=== PATIENT | female | born 1965 | race Caucasian/White ===

== ENCOUNTER → 2023-06-30 07:26 | Outpatient (REF) | payer BC, SELFPAY | LOC: EMG 07:26 | PROVIDERS: ATTENDING PHYSICIAN Psychiatry & Neurology Neurology; FAMILY PHYSICIAN Internal Medicine | DX: R20.0 Anesthesia of skin (principal) | CPT/HCPCS: 95886; 95911 ==

== ENCOUNTER → 2023-08-28 12:49 | Outpatient (REF) | payer BC, SELFPAY | LOC: RCS 12:49 | PROVIDERS: ATTENDING PHYSICIAN Internal Medicine | DX: R00.2 Palpitations (principal) | CPT/HCPCS: 93225; 93226 ==

== ENCOUNTER → 2023-09-07 06:55 | Outpatient (REF) | payer BC, SELFPAY | LOC: HWRCS 06:55 | PROVIDERS: ATTENDING PHYSICIAN Internal Medicine | DX: R00.2 Palpitations (principal) | CPT/HCPCS: 93306 ==

== ENCOUNTER 2024-02-17 13:14 | Emergency (ER) | payer BC, SELFPAY ==
[2024-02-17] MEDS: TORADOL 15 MG IV (14:11)
[2024-02-17] MEDS: ZOFRAN 4 MG IV (14:11)
[2024-02-17] MEDS: NSS 1000 IV (14:13)
[2024-02-17 14:15] VITALS: BMI 34.9
[2024-02-17 14:25] LABS: % Basophils 0.2 % (0-2); % Immature Granulocytes 0.5 % (0-0.5); % Lymphocytes 11.2 % (20.5-51.1); % Monocytes 4.4 % (1.7-9.3); % Neutrophils 83.7 % (42.2-75.2); Absolute Immature Granulocytes 0.1 10^3/uL (0-0.05); Absolute Lymphocytes 1.4 10^3/uL (1.2-3.4); Absolute Monocytes 0.6 10^3/uL (0.1-0.6); Absolute Neutrophils 10.8 10^3/uL (1.4-6.5); Hemoglobin 13.9 g/dL (12.0-16.0); Mean Corp Hgb Conc. 33.9 g/dL (33.0-37.0); Mean Corpuscular Hgb 29.1 pg (27.0-31.0); Mean Platelet Volume 9.8 fL (7.4-10.4); Nucleated Red Blood Cells % 0 %; Platelet Count 257 10^3/uL (130-400); Red Blood Cell Count 4.77 10^6/uL (4.20-5.40); Red Cell Dist. Width 12.4 % (11.5-14.5); White Blood Cell Count 12.9 10^3/uL (4.8-10.8)
--- NOTE | 2024-02-17 14:30 | ED.GENMED ---
History of Present Illness
General
Chief Complaint: Abdominal Symptoms
Time Seen by Provider: 02/17/24 13:28
History of Present Illness
History of Present Illness:
2-year-old female presents to the emergency department for evaluation of acute onset of upper abdominal pain and vomiting beginning earlier this morning. Has been unable to tolerate any p.o. fluids. Pain is mild to moderate at this time. She does
endorse eating a frozen pizza and drinking wine last night and feels this may have provoked her symptoms. Denies history of frequent alcohol intake, purely social. Denies tobacco use. Does take NSAIDs but infrequently. Prior abdominal surgery
includes
Review of Systems
Review of Systems
Allergies reviewed?: Yes
All Other Systems: ROS reviewed and negative except as documented in HPI and ROS
Phy Exam
Physical Exam
Physical Exam:
GEN: Well appearing, NAD, WDWN
Eyes: PERRLA, EOMs intact, no scleral icterus
HENT: NCAT, oral mucosa moist
Lungs: CTAB, no wheezes, rales, rhonchi, normal chest wall excursion
Cardiac: RRR, no M/R/G, no peripheral edema. Radial pulses 2+ bilat
Abdomen: Soft, no focal tenderness, negative Becerra sign, no rigidity
Neuro: AO x 3
MSK: No gross deformity or ecchymosis. No edema. No digital clubbing
Skin: No rashes, petechiae. Normal color, no pallor or jaundice.
Psych: Calm, cooperative, proper hygiene
Course
Orders/Labs/Results
Orders:
Orders
02/17/24 13:33
Ketorolac [Toradol] 15 mg IV NOW STA
Ondansetron Injectable [Zofran] 4 mg IV NOW STA
02/17/24 13:36
0.9% Sodium Chloride 1000 ml [Nss] 1,000 ml IV BOLUS
02/17/24 14:10
Complete Blood Count/With Diff Urgent
Comprehensive Metabolic Panel Urgent
Lipase Urgent
02/17/24 15:38
Ondansetron Orally Disint [Zofran Odt (Orally Disintegrating)] 4 mg PO NOW STA
Abnormal Lab Results
02/17/24
14:10
WBC 12.9 H 10^3/uL
(4.8-10.8)
Abs Immat Gran (auto) 0.1 H 10^3/uL
(0-0.05)
Absolute Neuts (auto) 10.8 H 10^3/uL
(1.4-6.5)
Neutrophils % 83.7 H %
(42.2-75.2)
Lymphocytes % 11.2 L %
(20.5-51.1)
BUN 21 H mg/dl
(7-17)
Glucose 159 H mg/dl
(70-99)
Calcium 10.3 H mg/dl
(8.4-10.2)
AST 118 H U/L
(14-36)
ALT 69 H U/L
(0-35)
02/17/24 14:10
02/17/24 14:10
Vital Signs
Initial and Last Documented VS:
Initial Vital Signs
Temp Pulse Resp Pulse Ox
98.3 F 75 18 100
02/17/24 13:16 02/17/24 13:16 02/17/24 13:16 02/17/24 13:16
Last Documented Vital Signs
Temp Pulse Resp Pulse Ox
98.3 F 67 18 99
02/17/24 13:16 02/17/24 14:00 02/17/24 13:16 02/17/24 14:00
MDM/Problems Addressed
MDM/Problems Addressed:
Abdominal exam is reassuring. Labs are unremarkable. She has no right upper quadrant tenderness to suggest acute cholecystitis. Likely self-limited viral syndrome versus foodborne gastroenteritis, treated with IV fluids and antiemetics, pain
resolved with IV NSAIDs. Able to tolerate p.o. fluids at time of discharge
*Critical Care Note
Total Time (30-74mins, 75-104mins- exclusive of procedures): Not Applicable
ED Attending Note
-
Portions of this chart may have been created with voice recognition software.� Occasional wrong word or��sound alike� substitutions may have occurred due to the inherent limitations of voice recognition software.
Discharge Plan
Departure
Patient Disposition: Home (Routine Discharge)
Date of Disposition: 02/17/24
Time of Disposition: 15:36
Patient with high blood pressure during this ER visit?: No
Discharge Problem:
Gastroenteritis
Instructions: Nausea and Vomiting, Adult (DC)
Prescriptions:
New
ondansetron 4 mg tablet,disintegrating
4 mg PO TIDPRN PRN (Reason: nausea/vomiting) Qty: 10 0RF
Referrals:
Macho Hammonds MD [Family Provider] -
Interventions
Interventions:
*Risk Screen - Suicide Last Done: 02/17/24 13:16
*General Assessment Last Done: 02/17/24 13:16
*Neglect/Abuse Screening Last Done: 02/17/24 13:16
*ED COVID-19 Vaccine History Last Done: 02/17/24 13:16
GJ-Gnmfsx-Hfpdjzxiog Assessment Last Done: 02/17/24 14:33
Discharge Date and Time
Print Language: MACANESE
[2024-02-17 14:37] LABS: ALT (SGPT) 69 U/L (0-35); AST (SGOT) 118 U/L (14-36); Alkaline Phosphatase 65 U/L (38-126); Blood Urea Nitrogen 21 mg/dl (7-17); Calcium 10.3 mg/dl (8.4-10.2); Carbon Dioxide 28 mmol/L (22-30); Chloride 103 mmol/L (98-107); Estimated Creatinine Clearance 118 ml/min; Glucose 159 mg/dl (70-99); Lipase 72 U/L (23-300); Sodium 143 mmol/L (135-145); Total Bilirubin 0.8 mg/dl (0.2-1.3); Total Protein 7.9 g/dl (6.3-8.2); eGFR > 60.00
[2024-02-17] MEDS: ZOFRAN ODT (ORALLY DISINTEGRATING) 4 MG PO (15:47)
== END 2024-02-17 15:48 | disposition home or self-care (01) ==
LOC: EMR 13:14
PROVIDERS: Physician Assistant; EMERGENCY PHYSICIAN Emergency Medicine; FAMILY PHYSICIAN Internal Medicine
DX: K52.9 Noninfective gastroenteritis and colitis, unspecified (principal)
CPT/HCPCS: 99284; 96374; 96375; 96361 ×2; 80053; 83690; 85025

== ENCOUNTER → 2024-03-15 07:31 | Outpatient (REF) | payer BC, SELFPAY | LOC: RAD 07:31 | PROVIDERS: ATTENDING PHYSICIAN Internal Medicine | DX: K80.20 Calculus of gallbladder without cholecystitis without obstruction (principal) | CPT/HCPCS: 78226; A9537 ==

== ENCOUNTER 2025-03-31 00:42 | Inpatient (IN) | payer BC, OTHER, SELFPAY ==
[2025-03-30 18:57] VITALS: BP 155/65
[2025-03-30 20:34] VITALS: BMI 34.6
[2025-03-30 20:49] LABS: Hematocrit 37.1 % (37.0-47.0); Hemoglobin 12.8 g/dL (12.0-16.0); Mean Corp Hgb Conc. 34.5 g/dL (33.0-37.0); Mean Corpuscular Volume 87.9 fL (81.0-99.0); Nucleated Red Blood Cells % 0 %; Platelet Count 236 10^3/uL (130-400); Red Cell Dist. Width 13.8 % (11.5-14.5)
[2025-03-30 20:56] LABS: Urine Character Clear (Clear)
[2025-03-30 21:12] LABS: Urine Squamous Cell 0-2 /LPF (Few); Urine Urothelial Cell 0-2 /LPF (FEW)
[2025-03-30 21:41] LABS: ALT (SGPT) 311 U/L (0-35); AST (SGOT) 157 U/L (14-36); Albumin 4.3 g/dl (3.5-5.0); Alkaline Phosphatase 505 U/L (38-126); Blood Urea Nitrogen 24 mg/dl (7-17); Calcium 9.5 mg/dl (8.4-10.2); Carbon Dioxide 23 mmol/L (22-30); Chloride 104 mmol/L (98-107); Estimated Creatinine Clearance 100 ml/min; Glucose 104 mg/dl (70-99); Lipase 169 U/L (23-300); Potassium 4.2 mmol/L (3.5-5.1); Sodium 135 mmol/L (135-145); Total Protein 7.4 g/dl (6.3-8.2); eGFR > 60.00
[2025-03-30 22:00] VITALS: BP 130/61
[2025-03-30 22:03] VITALS: BP 130/61
--- NOTE | 2025-03-30 22:05 | ED.GENMED ---
History of Present Illness
General
Chief Complaint: Abdominal Pain
Time Seen by Provider: 03/30/25 21:29
History of Present Illness
History of Present Illness:
Patient is a 59-year-old woman presenting to the emergency department with concerns for abnormal liver function test. Patient states that around she developed some indigestion and belching. Soon is later she noticed dark urine that
she attributed to dehydration. However it was persistent so she went to her primary care doctor. She had blood work done that did show elevated AST and ALT as well as direct and total bilirubin. She has been following closely with her primary
care doctor who noticed that her AST and ALT are improving though her direct bilirubin as well as alk phos is increasing. Patient does admit to alcohol use. She denies any Tylenol use. No new drugs. No history of IV drug use. She did have a
hepatitis panel that was negative. She does state that she has had gallstones in the past with a HIDA scan that was unremarkable. She denies any abdominal pain. No nausea or vomiting. No significant weight loss.
Phy Exam
Physical Exam
Physical Exam:
GENERAL: in no acute distress
HEENT: Slight scleral icterus normocephalic, extraocular movements intact, moist oral mucosa
NECK: normal inspection
RESPIRATORY: no respiratory distress, clear to auscultation bilaterally
CARDIOVASCULAR: regular rate and rhythm
ABDOMEN/: soft, non-distended, non-tender to palpation, no rebound or guarding
EXTREMITIES: non-tender, no edema/swelling
NEUROLOGIC: awake and alert, moves all extremities
SKIN: warm
Course
Orders/Labs/Results
Orders:
Orders
03/30/25 19:01
IV Insert/Care/Rem.- Treatment PRN
03/30/25 20:40
Complete Blood Count/With Diff Urgent
03/30/25 20:47
Urinalysis Urgent
Date Specimen was Collected: 03/30/25
Time Specimen was Collected: 19:02
Urine Microscopic Urgent
Date Specimen was Collected: 03/30/25
Time Specimen was Collected: 19:02
03/30/25 21:18
Comprehensive Metabolic Panel Urgent
Direct Bilirubin Urgent
Lipase Urgent
03/30/25 21:53
US Abdomen Complete/Upper Urgent
Comment:
Reason For Exam: jaundice
Abnormal Lab Results
03/30/25 03/30/25 03/30/25
20:40 20:47 21:18
MPV 10.7 H fL
(7.4-10.4)
Immature Gran % 0.6 H %
(0-0.5)
BUN 24 H mg/dl
(7-17)
Glucose 104 H mg/dl
(70-99)
Total Bilirubin 3.5 H mg/dl
(0.2-1.3)
Direct Bilirubin 2.6 H mg/dl
(0.0-0.4)
AST 157 H U/L
(14-36)
ALT 311 H U/L
(0-35)
Alkaline Phosphatase 505 H U/L
(38-126)
Urine Occult Blood 1+ A
(Negative)
Urine Urobilinogen 2+ A
(Neg - 1+)
Urine RBC 3-6 A /HPF
(0-2)
Urine Bacteria Few A
(Negative)
03/30/25 20:40
03/30/25 21:18
Vital Signs
Initial and Last Documented VS:
Initial Vital Signs
Temp Pulse Resp BP Pulse Ox
98.1 F 71 20 155/65 99
03/30/25 18:57 03/30/25 18:57 03/30/25 18:57 03/30/25 18:57 03/30/25 18:57
Last Documented Vital Signs
Temp Pulse Resp BP Pulse Ox
98.1 F 74 20 130/61 100
03/30/25 18:57 03/30/25 22:03 03/30/25 18:57 03/30/25 22:03 03/30/25 22:03
MDM/Problems Addressed
Differential Diagnosis Includes:
Patient is a 59-year-old woman presenting to the emergency department concerns for transaminitis as well as elevated bilirubin. On arrival vitals are notable for hypertension and exam does show mild scleral icterus. Differential is broad but
consists of malignancy versus bile duct obstruction versus cholecystitis though less likely. History and exam makes drug-induced liver injury less likely. Blood work obtained prior to my evaluation does show elevated AST and ALT as well as
elevated total and direct bilirubin. Her direct bilirubin is uptrending based on blood work on patient's portal. Given the painless jaundice I did discuss with GI who is in agreement with admission. Will proceed with ultrasound. If unremarkable
will obtain CT scan. Discussed with hospitalist who accepted patient to their service.
*Pulse Oximetry
SaO2: 100
Oxygen Mode of Delivery: Room air
Patient hypoxic: no
*Critical Care Note
Total Time (30-74mins, 75-104mins- exclusive of procedures): Not Applicable
ED Attending Note
-
Portions of this chart may have been created with voice recognition software.� Occasional wrong word or��sound alike� substitutions may have occurred due to the inherent limitations of voice recognition software.
Discharge Plan
Departure
Patient Disposition: Admit
Date of Disposition: 03/30/25
Time of Disposition: 22:01
Presentation/result/management discussed w/ accepting MD/DO: Hospitalist
Discharge Problem:
Transaminitis, Painless jaundice
Prescriptions:
No Action
ondansetron 4 mg tablet,disintegrating
4 mg PO TIDPRN PRN (Reason: nausea/vomiting) Qty: 10 0RF
Referrals:
Kassi Juárez CRNP [Family Provider]
Interventions
Interventions:
*Risk Screen - Suicide Last Done: 03/30/25 20:47
*General Assessment Last Done: 03/30/25 18:57
*Neglect/Abuse Screening Last Done: 03/30/25 20:45
*ED COVID-19 Vaccine History Last Done: 03/30/25 20:45
*ED Influenza Vaccine History Last Done: 03/30/25 20:45
[facility] Fall Risk Assessment Tool Last Done: 03/30/25 20:35
BA-Fcgkhr-Urtmzvqsow Assessment Last Done: 03/30/25 20:45
Discharge Date and Time
Print Language: NAMIBIAN
[2025-03-31] VITALS (11 sets, daily range): BP systolic 103–144; BP diastolic 55–72; BMI 33.4
--- NOTE | 2025-03-31 00:36 | HPS.HSE ---
Family Physician
-
Family Physician: DC Berger
Chief Complaint
-
Abnormal Labs
History of Present Illness
Patient is a 59y F with no significant PMH who presents to ED for evaluation of abnormal labs / scleral icterus. Patient states that she developed epigastric discomfort / indigestion around Thanksgiving. She had symptoms for the next few days
which improved with Tums / massage. The following weekend she noted that her urine was dark appearing. This has persisted. Patient was treated for possible UTI by her PCP - but culture was ultimately negative and abx discontinued. She had
outpatient labs done which showed abnormal LFTs. Family noted perhaps some mild yellowing of the eyes over this past week.
Patient returned to PCP for repeat / follow-up labs which were still abnormal / elevated.
She presented to the ED today for further evaluation. She is anxious / tearful in the ED and concerned about these recent results.
Patient denies any current abdominal pain. No N/V though she does note that her appetite has been decreased from normal.
She denies any changes in bowel habits. No fevers / chills.
Patient reports dry mouth for the past 2 months. No other current complaints or concerns.
Medical History
Past Medical History
Past Medical History: Reports Other
Additional Past Medical History:
Gestational Diabetes
Past Surgical History: Reports Other
Additional Past Surgical History:
D&C
Social History
Tobacco: Former Smoker (Quit smoking about 20y ago.)
Alcohol: Occasional
Drug: None
Personal:
Living: With Family
Family History
Family History: Not pertinent
Allergies / Home Medications
Allergies reflects when Allergies were last updated in [facility].
Home Medications with original date entered in [facility]
Allergy/Medication List:
Allergies
Allergy/AdvReac Type Severity Reaction Status Date / Time
No Known Allergies Allergy Verified 03/30/25 18:57
Home Medications
No Meds [No Current Medications] 03/31/25
Review of Systems
-
History Source: Patient
A 12 point ROS was completed and negative except as noted: Yes
Constitutional: Denies Fever, Fatigue or Chills
EENT: Denies Sore Throat
Respiratory: Denies Cough or Trouble Breathing
Cardiac: Denies Chest Pain or Palpitations
Abdomen/GI: Reports Anorexia; Denies Abdominal Pain, Nausea, Vomiting, Diarrhea, Bloody Stools or Black Stools
: Reports Dark Urine; Denies Dysuria, Frequency or Flank Pain
Musculoskeletal: Denies Joint Pain or Edema
Neurological: Denies Dizzy or Headache
Psych: Reports Anxiety
Physical Exam
Vital Signs
Vital Signs
Temp Pulse Resp BP Pulse Ox
98.4 F 85 15 144/56 100
03/31/25 00:02 03/31/25 00:02 03/31/25 00:02 03/31/25 00:02 03/31/25 00:02
Physical Exam
General: Other (59y F tearful / anxious at times.)
HEENT: Other (Dry MM. Neck supple.)
Respiratory: Clear; No Wheezes, Rales or Rhonchi
Cardiac: S1/S2 and Regular Rhythm; No Murmur
GI: Soft, Non Tender, Non Distended and Normal Bowel Sounds
Musculoskeletal: No Clubbing, No Cyanosis and No Edema
Neuro: AO x 3
Laboratory Results
-
03/30/25 20:40
03/30/25 21:18
Laboratory Results
Total Bilirubin 3.5 mg/dl (0.2-1.3) H 03/30/25 21:18
AST 157 U/L (14-36) H 03/30/25 21:18
ALT 311 U/L (0-35) H 03/30/25 21:18
Alkaline Phosphatase 505 U/L (38-126) H 03/30/25 21:18
Lipase 169 U/L (23-300) 03/30/25 21:18
Impression/Plan
-
A/P: Patient is a 59y F with no significant PMH who presents to ED for evaluation of abnormal labs.
Abnormal LFTs
- Admit for further evaluation and treatment.
- US done in the ED - report pending at this time.
- Follow for any new GI symptoms / complaints.
- GI evaluation for additional recommendations.
- MRI / MRCP in the AM for further evaluation.
- Check hepatitis panel. Check LUCY / ASMA.
DVT Prophylaxis: SCDs
Code Status: Full
[2025-03-31] MEDS: NSS 1000 IV ×2 (03:14→17:18)
[2025-03-31 06:32] LABS: Hematocrit 38.8 % (37.0-47.0); Hemoglobin 13.1 g/dL (12.0-16.0); Mean Corp Hgb Conc. 33.8 g/dL (33.0-37.0); Mean Corpuscular Volume 90.0 fL (81.0-99.0); Platelet Count 262 10^3/uL (130-400); Red Cell Dist. Width 13.8 % (11.5-14.5)
[2025-03-31 07:02] LABS: ALT (SGPT) 292 U/L (0-35); AST (SGOT) 134 U/L (14-36); Albumin 4.2 g/dl (3.5-5.0); Alkaline Phosphatase 544 U/L (38-126); Blood Urea Nitrogen 17 mg/dl (7-17); Calcium 9.5 mg/dl (8.4-10.2); Carbon Dioxide 23 mmol/L (22-30); Chloride 108 mmol/L (98-107); Estimated Creatinine Clearance 114 ml/min; Glucose 108 mg/dl (70-99); Magnesium 2.1 mg/dl (1.6-2.3); Potassium 4.2 mmol/L (3.5-5.1); Sodium 138 mmol/L (135-145); Total Protein 7.2 g/dl (6.3-8.2); eGFR > 60.00
--- NOTE | 2025-03-31 07:50 | CON.GI ---
Addendum entered and electronically signed by Curly Corey MD 03/31/25 16:10:
I saw and examined the patient.
The PA's note was reviewed and I agree with the note.
Comment:
59 year old female with h/o gestational diabetes and colon polyps who had epigastric pain around thanksgiving and then developed jaundice with elevated LFT bili 3.5 and alk phos 505. US showed 2.3 cm impacted stone in the neck of GB and moderate IH
ductal dilation which was suspicious for possible Mirizzi syndrome. MRI/MRCP done, and this confirmed Mirizzi syndrome with large cholelithiasis contributing to extrinsic compression on the proximal CHD / main left IH duct. This was discussed with
the pt. Will need surgical mx with cholecystectomy. GI s/o, pls call if questions/our service is needed.
Addendum entered and electronically signed by DC Ramirez 03/31/25 08:43:
03/30/25 US abdomen
1. DISTAL BILIARY OBSTRUCTION with moderate extrahepatic and intrahepatic biliary dilatation.
2. CHOLELITHIASIS, gallbladder sludge, and diffuse gallbladder wall thickening.
3. No sonographic evidence for ascites.
4. Mild dilatation of the right intrarenal collecting system.
Original Note:
Consultation
-
Date/Time Consultation Requested: 03/31/25 0300
Date/Time Consultation Performed: 04/10/25 0750
Requesting Provider: Angel Gonzalez DO
Performing Provider: DC Reveles, Lilly Conley DO
Reason for Consultation: abnormal labs
Medical History
Chief Complaint / HPI
Chief Complaint: epigastric pain, dark urine, jaundice
History of Present Illness:
Pt is a 59yo with hx gestational diabetes, colon polyps, prior and D+ C with onset of epigastric pain around thanksgiving. She took tums and used massage. She then noted dark urine with treatment of possible UTI but culture was negative
and took antibiotics that she could not recall for about 2 days. She then developed jaundice with noted stable CBC on admission but bili 3.5, D ted 2.6, ASt 156, ALT 311, alk phos 505 with +2 bili on UA. US was completed on admission with
preliminary results with impacted stone in neck of gallbladder, GBWT, CBD 7.3 mm with mild intrahepatic biliary dilation and no filling defect in duct with pancreas partially obscured by bowel gas.
In review with patient she admits to about 5 lbs wt loss since thanksgi with jaundice but no recurrent abdominal pain. She did not some wan stool after admission. She otherwise denies odynophagia, dysphagia, GERD, nausea, vomiting,
diarrhea, constipation, or rectal bleeding. + ETOH use on weekends several drinks.
Past Medical History
Past Medical History: Other (gestational DM, colon polyps)
Past Surgical History: , Gynecological (D+ C) and Other (dental implants )
Social History
Tobacco: Non-Smoker
Alcohol: Occasional (Weekends with dinner )
Drug: None
Personal:
Living: With Family
Employment: Employed
Family History
Family History: Other (sister with hx colon )
Allergies / Home Medications
Allergy/AdvReac Type Severity Reaction Status Date / Time
No Known Allergies Allergy Verified 03/30/25 18:57
�Medication �Instructions �Recorded
No Meds [No Current Medications] 03/31/25
Review of Systems
-
History Source: Patient and Family
Constitutional: Reports Weight Loss
EENT: Reports No Symptoms
Respiratory: Reports No Symptoms
Abdomen/GI: Reports Abdominal Pain (epigastric pain several weeks ago) and Other (wan stools)
: Reports Dark Urine
Musculoskeletal: Reports No Symptoms
Skin: Reports Other (change in skin color)
Neurological: Reports No Symptoms
Endocrine: Reports No Symptoms
Hematologic/Lymphatic: Reports No Symptoms
Vital Signs
Temp Pulse Resp BP Pulse Ox
98.7 F 66 20 115/65 97
03/31/25 07:12 03/31/25 07:12 03/31/25 07:12 03/31/25 07:12 03/31/25 07:12
Physical Exam
Exam
General: Well Developed, Well Nourished and No Apparent Distress
HEENT: Other (mild jaundice )
Respiratory: Clear
Cardiac: Regular Rhythm
GI: Soft, Non Tender and Non Distended
Musculoskeletal: No Clubbing and No Cyanosis
Skin: Warm and Dry
Neuro: Awake, Alert and AO x 3
Hematologic/Lymphatic: Lymphadenopathy
Psych: Calm
Results
WBC 6.3 10^3/uL (4.8-10.8) 03/31/25 06:19
Hgb 13.1 g/dL (12.0-16.0) 03/31/25 06:19
Hct 38.8 % (37.0-47.0) 03/31/25 06:19
MCV 90.0 fL (81.0-99.0) 03/31/25 06:19
Plt Count 262 10^3/uL (130-400) 03/31/25 06:19
Absolute Neuts (auto) 2.8 10^3/uL (1.4-6.5) 03/30/25 20:40
Sodium 138 mmol/L (135-145) 03/31/25 06:19
Potassium 4.2 mmol/L (3.5-5.1) 03/31/25 06:19
Chloride 108 mmol/L (98-107) H 03/31/25 06:19
Carbon Dioxide 23 mmol/L (22-30) 03/31/25 06:19
BUN 17 mg/dl (7-17) 03/31/25 06:19
Creatinine 0.6 mg/dL (0.6-1.0) 03/31/25 06:19
Calcium 9.5 mg/dl (8.4-10.2) 03/31/25 06:19
Total Bilirubin 2.0 mg/dl (0.2-1.3) H D 12/15/25 06:19
AST 134 U/L (14-36) H 03/31/25 06:19
ALT 292 U/L (0-35) H 03/31/25 06:19
Alkaline Phosphatase 544 U/L (38-126) H 03/31/25 06:19
Lipase 169 U/L (23-300) 03/30/25 21:18
Diagnostic Image Results:
03/30 preliminary -- US was completed on admission with preliminary results with impacted stone in neck of gallbladder, GBWT, CBD 7.3 mm with mild intrahepatic biliary dilation and no filling defect in duct with pancreas partially obscured by bowel
gas.
Prior GI Procedures:
Colonoscopy: about 2 years ago with polyps
Assessment / Plan
-
Pt is a 59yo with hx gestational diabetes, colon polyps, prior and D+ C with onset of epigastric pain around . She took tums and used massage. She then noted dark urine with treatment of possible UTI but culture was negative
and took antibiotics that she could not recall for about 2 days. She then developed jaundice with noted stable CBC on admission but bili 3.5, D ted 2.6, ASt 156, ALT 311, alk phos 505 with +2 bili on UA. US was completed on admission with
preliminary results with impacted stone in neck of gallbladder, GBWT, CBD 7.3 mm with mild intrahepatic biliary dilation and no filling defect in duct with pancreas partially obscured by bowel gas. In review with patient she admits to about 5 lbs
wt loss since with jaundice but no recurrent abdominal pain. She did not some wan stool after admission. + ETOH use on weekends several drinks.
-onset of jaundice with LFT elevation with epigastric pain several weeks ago
-US with possible impacted stone in GB neck with CBD dilatation
-recent 2 days abx for possible UTI then stopped with neg cx
other med problems:
gestational diabetes, colon polyps, prior and D+ C
PLAN:
etiology of symptoms concern for biliary issue with impacted stone on US vs pancreatic issue bvs other
await final reading of US
for MRI/MRCP
for surgical eval
trend labs
support given as pt tearful awaiting testing
updated family
-
-
Thank you for consultation and allowing me to participate in the patient's care. Please call the education finance processor GI physician during the after hours with any questions or concerns.
--- NOTE | 2025-03-31 08:24 | PTCARENOTE ---
Assumed care. No pain at rest. Epigastric tenderness, bowels sounds hyperactive, wan BM this morning. VSS, NPO for MRI abdomen today
[2025-03-31] MEDS: PROTONIX PO (09:16)
--- NOTE | 2025-03-31 09:50 | CON.GS ---
Addendum entered and electronically signed by Aristeo Le MD 04/01/25 07:18:
Delayed entry note from 03/31/2025
I saw and examined the patient independently on 03/31/2025.
The Flight Operation Coordinator's note was reviewed and I agree with the note, assessment and plan except where noted below.
Comment: This is a 59-year-old female with medical history below and recent postprandial abdominal pain who presents with scleral icterus and though she had not no pain on admission it was preceded by abdominal discomfort. She underwent an MRI
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
Will plan for a laparoscopic cholecystectomy with cholangiogram, added on for 04/01/2025
Okay for clears 04/01/2025, n.p.o. at midnight
IV fluids, IV antibiotics.
Risks/Benefits/Alternatives, expected postoperative course and possible complications (bleeding, infection, injury to surrounding structures, acute/chronic pain) discussed at length. Patient wishes to proceed with surgery. All questions answered.
I spent 70 minutes in total for the care of this patient today including direct patient care and counseling, reviewing labs, imaging, coordination of care, as well as documentation.
Original Note:
Consultation
-
Date/Time Consultation Performed: 03/31/25 0915
Medical History
-
Chief Complaint: epigastric pain
History of Present Illness:
59 yo female with a h/o gestational dm and who presents with epigastric pain intermittently since associated with heartburn. She notes a similar episode last year around as well and underwent HIDA scan at that
time which was negative. She presented through the ED as she noted scleral icterus with abnormal outpatient labs. She is having heartburn symptoms currently and mild discomfort without tenderness one xam. she denies nausea or vomiting. She denies
fevers or chills. She notes that her urine has been darker over the past week.
Past Medical History
Past Medical History: Other (gestational dm)
Past Surgical History: and Gynecological (D&C)
Social History
Tobacco: Non-Smoker
Alcohol: Occasional
Family History
Family History: Reviewed & Not Pertinent
Allergies / Home Medications
Allergy/AdvReac Type Severity Reaction Status Date / Time
No Known Allergies Allergy Verified 03/30/25 18:57
�Medication �Instructions �Recorded �Confirmed �Type
No Meds [No Current Medications] 03/31/25 03/31/25 History
Review of Systems
-
History Source: Patient and Family
All other systems: Negative unless noted
A 10 point review of systems was completed, and was negative except as per HPI.
Physical Exam
Vital Signs
Temp Pulse Resp BP Pulse Ox
98.7 F 66 20 115/65 97
03/31/25 07:12 03/31/25 07:12 03/31/25 07:12 03/31/25 07:13 03/31/25 07:12
03/30/25 03/31/25 04/01/25
06:59 06:59 06:59
Actual Weight 91.1 kg
Body Mass Index (BMI) 33.4
Lab Results
03/31/25 06:19
03/31/25 06:19
WBC 6.3 10^3/uL (4.8-10.8) 03/31/25 06:19
Hgb 13.1 g/dL (12.0-16.0) 03/31/25 06:19
Hct 38.8 % (37.0-47.0) 03/31/25 06:19
Plt Count 262 10^3/uL (130-400) 03/31/25 06:19
Abs Immat Gran (auto) 0.0 10^3/uL (0-0.05) 03/30/25 20:40
Neutrophils % 53.2 % (42.2-75.2) 03/30/25 20:40
Physical Exam
General: Other (tearful, expressing worry over her condition)
HEENT: Scleral Icterus
GI: Soft, Non Tender and Non Distended
Skin: Warm and Dry
Neuro: Awake, Alert and AO x 3
Psych: Calm
Assessment / Plan
-
59 yo h/o gestational dm and who presents with epigastric pain intermittently since gi associated with heartburn who presents for jaundice. LFT's elevated with bilirubin of 3.5 on admission, trended down to 2.0. Direct mildly
elevated to 1.0, transaminitis and alk phos elevated as well. Lipase WNL. No leukocytosis. Afebilre. VSS. Abdominal US with evidence of biliary duct obstruction with cholelithiasis, sludge and gallbladder wall thickening. Suspect choledocholithiasis
as etiology of her abnormal labs/symptoms although will need to rule out other obstructing causes.
Plan:
MRI pending to better differentiate cause of obstruction
GI following
Further surgical recs pending MRI findings
--- NOTE | 2025-03-31 11:10 | W.PN.HOSP.TC ---
Today's Communication/Plan
-
Await MRI
Add CPAP
Assessment / Plan
Assessment / Plan
59-year-old female with jaundice she also has 5 pound weight loss since .
Ultrasound of the abdomen 03/30/2025-distal biliary obstruction with moderate extrahepatic and intrahepatic biliary dilatation. Cholelithiasis. Gallbladder sludge and diffuse gallbladder wall thickening. No ascites. Mild dilatation of the right
intrarenal collecting system.
CVS: S1-S2 normal
Chest: CTA B/L
Abdomen: Soft, No RUQ tenderness, Bowel sounds present
Extremities: No edema
# Jaundice with epigastric pain
Ultrasound as above
Possible stone related
If patient develops any fever add antibiotics
Await MRI/MRCP
Surgery and GI evaluation appreciated
LFT stable-but elevated
Hepatitis panel pending
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
# Sleep apnea-CPAP - she just started it as OP
# Prediabetes
# Obesity with a BMI of 33
# DVT prophylaxis-Lovenox
# Full code
D/W RN
D/W Family at bed side
Part of this note was created using voice recognition system. Occasional wrong word or��sound alike� substitutions may have inadvertently occurred due to the inherent limitations of voice recognition software. If noted kindly bring it to my
attention for correction.
Anticipated Discharge: 24 - 48 hours
Subjective/Interval History
-
Date of Service: March 31, 2025
Objective Data
-
Labs:
Laboratory Results
03/31/25
06:19
WBC 6.3
Hgb 13.1
Hct 38.8
Plt Count 262
Sodium 138
Potassium 4.2
Chloride 108 H
Carbon Dioxide 23
BUN 17
Creatinine 0.6
Glucose 108 H
Calcium 9.5
Total Bilirubin 2.0 H D
AST 134 H
ALT 292 H
Alkaline Phosphatase 544 H
Vital Signs:
Vital Signs
Temp Pulse Resp BP Pulse Ox
98.7 F 66 20 115/65 97
03/31/25 07:12 03/31/25 07:12 03/31/25 07:12 03/31/25 07:13 03/31/25 07:12
--- NOTE | 2025-03-31 11:10 | CM ---
Chart reviewed. Patient is independent of ADLS, lives with her in a split level, 0 ERIKA, 0 DME. Plan is for the patient to return home. CM to follow
--- NOTE | 2025-03-31 11:14 | PTCARENOTE ---
Patient sent to MRI on a stretcher
--- NOTE | 2025-03-31 15:06 | PTCARENOTE ---
Diet advanced to clear. Urine orange. 3 episodes of loose stools this afternoon. Formed stool earlier today. Family at bedside, call maria in reach
[2025-03-31] MEDS: LOVENOX 40 MG SC (18:34)
[2025-03-31 19:15] LABS: Hepatitis B Surface Antigen Negative (Negative)
[2025-03-31 19:32] LABS: Hepatitis C Antibody Negative (Negative)
[2025-04-01] VITALS (26 sets, daily range): BP systolic 0–131; BP diastolic 52–83; BMI 33.1
[2025-04-01] MEDS: NSS 1000 IV ×2 (04:56→20:27)
[2025-04-01 05:00] LABS: Hematocrit 39.7 % (37.0-47.0); Hemoglobin 13.1 g/dL (12.0-16.0); Mean Corp Hgb Conc. 33.0 g/dL (33.0-37.0); Mean Corpuscular Volume 91.3 fL (81.0-99.0); Platelet Count 254 10^3/uL (130-400); Red Cell Dist. Width 13.8 % (11.5-14.5)
[2025-04-01 05:28] LABS: ALT (SGPT) 335 U/L (0-35); AST (SGOT) 273 U/L (14-36); Albumin 4.0 g/dl (3.5-5.0); Alkaline Phosphatase 593 U/L (38-126); Blood Urea Nitrogen 12 mg/dl (7-17); Calcium 9.1 mg/dl (8.4-10.2); Carbon Dioxide 24 mmol/L (22-30); Chloride 106 mmol/L (98-107); Estimated Creatinine Clearance 98 ml/min; Glucose 106 mg/dl (70-99); Potassium 4.1 mmol/L (3.5-5.1); Sodium 138 mmol/L (135-145); Total Protein 7.1 g/dl (6.3-8.2); eGFR > 60.00
--- NOTE | 2025-04-01 06:34 | PTCARENOTE ---
Pt AAOx3. at bedside. No C/o pain. Pt was wiped with CHG wipes x2 and linens changed.
--- NOTE | 2025-04-01 07:33 | W.PN.GS2 ---
Today's Communication / Plan
-
-- Laparoscopic cholecystectomy with IOC
-- NPO, IVF
-- Abx: Zosyn
Assessment / Plan
-
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
US Abdomen (03/30): cholelithiasis, gallbladder sludge, diffuse gallbladder wall thickening, sonographic Becerra sign negative, biliary dilation with CBD measuring 7.3 mm
MRI Abdomen (03/31): Cholelithiasis without evidence of acute cholecystitis, several large stones measuring up to 3 cm causing extrinsic compression on the CBD, no choledocholithiasis
AVSS
Labs notable for uptrending bilirubin and LFTs
The natural history and pathophysiology of biliary and stone disease was reviewed. Workup thus far including ultrasound and MRI were reviewed. Labs were reviewed. Recommended plan for cholecystectomy.
Plan for a laparoscopic cholecystectomy with possible cholangiogram. The procedure itself, as well as the risks, benefits, and alternatives was discussed. Specifically, we discussed the risks of bleeding, infection, injury to surrounding
structures (bowel, bile ducts), CBD injury, need for open procedure. Typical postprocedural recovery was discussed. All questions answered. Consent signed.
-- Laparoscopic cholecystectomy with IOC
-- NPO, IVF
-- Abx: Zosyn
Subjective Data
-
Date of Service: April 01, 2025
Feels improved, but continues to have some mild discomfort and sour feeling in her epigastrium. No nausea or vomiting. No fevers or chills. Reports orange urine and location analyst stools as well as some jaundice.
Objective Data
-
Intake and Output
03/31/25 04/01/25 04/02/25
06:59 06:59 06:59
Intake Total 1680 / 1680
Output Total 10013 / 24467
Balance -62477 / -97752
Intake:
Oral fluids 720 / 720
IV piggybacks 960 / 960
Output:
Urine, Voided 89661 / 88568
Other:
Number of approximated MODERATE 1
amounts of urine
Vital Signs
Temp Pulse Resp BP Pulse Ox
97.8 F 65 16 131/53 100
04/01/25 07:23 03/31/25 23:05 04/01/25 07:23 04/01/25 07:25 04/01/25 07:23
Lab Results
04/01/25 04:47
04/01/25 04:47
Calcium 9.1 mg/dl (8.4-10.2) 04/01/25 04:47
Phosphorus 4.7 mg/dl (2.5-4.5) H 03/31/25 06:19
Magnesium 2.1 mg/dl (1.6-2.3) 03/31/25 06:19
Total Bilirubin 4.1 mg/dl (0.2-1.3) H D 04/01/25 04:47
Direct Bilirubin 1.0 mg/dl (0.0-0.4) H 03/31/25 06:19
AST 273 U/L (14-36) H 04/01/25 04:47
ALT 335 U/L (0-35) H 04/01/25 04:47
Alkaline Phosphatase 593 U/L (38-126) H 04/01/25 04:47
Total Protein 7.1 g/dl (6.3-8.2) 04/01/25 04:47
Albumin 4.0 g/dl (3.5-5.0) 04/01/25 04:47
Physical Exam
-
Gen: NAD
Abd: soft, mild epigastric tenderness, ND, obese, non-peritoneal, prior incision well healed
Patient has a sofia catheter: No
Patient has a central line: No
--- NOTE | 2025-04-01 07:39 | W.SUR.PREOP ---
Pre-Operative Surgical Note
-
I have examined this patient prior to the performance of the scheduled procedure.
The patient's condition is unchanged from the time of the current History and
Physical and the patient is able to undergo the scheduled procedure.
--- NOTE | 2025-04-01 07:45 | PTCARENOTE ---
Sent the patient to the OR in her bed. The patient is aaox3, vital signs are stable. She has tenderness in her epigastric area with some faint nausea. Pre-op checklist done. Raymond sent to OR with the patient. Consent on her chart.
--- NOTE | 2025-04-01 11:31 | W.IMMPOSTOP ---
Addendum entered and electronically signed by Tai Lea MD 04/02/25 13:48:
Case discussed with GI given the concern for a possible bile duct injury and leak. Recommend and plan for a ERCP (see separate procedure note for details).
Patient and family updated.
Original Note:
Surgical Immed Post Op Note
-
Primary Surgeon: Leonora
Assisting Surgeon: ESTHER Arguello
Pre-op Diagnosis: Acute on chronic cholecystitis
Post-op Diagnosis: Acute on chronic cholecystitis
Procedure Performed: Subtotal laparoscopic cholecystectomy
Anesthesia Type: General
Specimen / Cultures:
1. Gallbladder
Estimated Blood Loss: 11 cc
Complications: None
Operative Findings:
1. Severe chronic inflammation, dense adhesions to duodenum, 3 large stones and 2 smaller, hydropic bile
2. Subtotal with removal of anterior and posterior wall, friable wall at region of impacted stones, possible rent in CBD versus cystic duct orifice, no further area of bile leak appreciated (intraluminal GB view down on infundibulum)
3. Artery with clips, leak/duct with 4-0 PDS [id number] (no leak at closure)
4. 19 Fr Ja drain into operative field
[2025-04-01] MEDS: PROTONIX PO (11:32)
[2025-04-01] MEDS: PROTONIX 40 MG PO (12:26)
--- NOTE | 2025-04-01 12:39 | PTCARENOTE ---
Received the patient from PACU in her bed. The patient is aaox3 but groggy. She has 4 small linear horizontal wounds on her right/mid abdomen areas. Surgical glue is noted on all 4 wounds. A CASSIE drain is noted on her right lower lateral abdomen. No
drainage is noted in the bulb. She has no complains of pain or discomfort. NS is running at 80ml/hr. Her is at the bedside and her call maria is within reach.
--- NOTE | 2025-04-01 12:48 | CM ---
Chart reviewed. Patient is in the OR today. Patient is independent of ADLS, lives with her in a split level, 0 ERIAK, 0 DME. Plan is for the patient to return home. CM to follow
[2025-04-01] MEDS: ZOSYN 50 IV ×2 (14:03→20:29)
[2025-04-01] MEDS: TYLENOL 650 MG PO ×2 (14:08→20:57)
--- NOTE | 2025-04-01 14:14 | PTCARENOTE ---
The patient complained of a 2/10 on scale pain in her right mid abdomen. Tylenol given as ordered.
[2025-04-01] MEDS: ZOFRAN 4 MG IV (14:54)
--- NOTE | 2025-04-01 15:18 | W.PN.HOSP.TC ---
Today's Communication/Plan
-
NPO
IVF
Await GI eval
Assessment / Plan
Assessment / Plan
59-year-old female with jaundice she also has 5 pound weight loss since .
Ultrasound of the abdomen 03/30/2025-distal biliary obstruction with moderate extrahepatic and intrahepatic biliary dilatation. Cholelithiasis. Gallbladder sludge and diffuse gallbladder wall thickening. No ascites. Mild dilatation of the right
intrarenal collecting system.
CVS: S1-S2 normal
Chest: CTA B/L
Abdomen: Soft, No RUQ tenderness, Bowel sounds present
Extremities: No edema
03/31/2025-MRI/MRCP-cholelithiasis without evidence of acute cholecystitis. Large Gallstones 1 of which is in the gallbladder neck likely causing extrinsic compression on the adjacent common hepatic duct resulting in intrahepatic biliary ductal
dilatation.
# Jaundice with epigastric pain
Ultrasound as above
Symptomatic cholelithiasis-acute on chronic cholecystitis
Status post subtotal laparoscopic cholecystectomy by Dr. Lea on 04/01/2020
Patient is to be evaluated by Dr. Corey per discussion with surgery for a possible ERCP today
Antibiotics ordered per surgeon
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
# Sleep apnea-CPAP - she just started it as OP
# Prediabetes
# Obesity with a BMI of 33
# DVT prophylaxis-Lovenox
# Full code
D/W RN
D/W daughters at bed side
Discussed with surgeon
Part of this note was created using voice recognition system. Occasional wrong word or��sound alike� substitutions may have inadvertently occurred due to the inherent limitations of voice recognition software. If noted kindly bring it to my
attention for correction.
Anticipated Discharge: 24 - 48 hours
Subjective/Interval History
-
Date of Service: April 01, 2025
Objective Data
-
Labs:
Laboratory Results
04/01/25
04:47
WBC 5.4
Hgb 13.1
Hct 39.7
Plt Count 254
Sodium 138
Potassium 4.1
Chloride 106
Carbon Dioxide 24
BUN 12
Creatinine 0.7
Glucose 106 H
Calcium 9.1
Total Bilirubin 4.1 H D
AST 273 H
ALT 335 H
Alkaline Phosphatase 593 H
Vital Signs:
Vital Signs
Temp Pulse Resp BP Pulse Ox
98.0 F 76 16 123/66 97
04/01/25 12:19 04/01/25 12:50 04/01/25 12:19 04/01/25 14:00 04/01/25 12:19
I&O
03/31/25 04/01/25 04/02/25
06:59 06:59 06:59
Intake Total 1680 / 1680 150 / 150
Output Total 65617 / 28113 800 / 800
Balance -15408 / -35653 -650 / -650
--- NOTE | 2025-04-01 16:00 | PTCARENOTE ---
Patient c/o nausea. Zofran given as ordered.
[2025-04-01] MEDS: LOVENOX 40 MG SC (20:28)
--- NOTE | 2025-04-01 23:48 | PTCARENOTE ---
Received pt at change of shift, pt in PACU. Report received from ELEVATOR INSPECTOR. pt back in room at approx 2009. PRN Tylenol administered per pt request for headache--see JUN. Assessment completed as documented. x4 incision sites intact and GEOSPATIAL ENGINEER. CASSIE drain
in place draining sanguineous fluid. Encouraged pt to call RN w/ any questions/concerns. Call maria within reach.
[2025-04-02 02:58] VITALS: BP 127/64
[2025-04-02] MEDS: ZOSYN 50 IV ×2 (02:59→08:23)
[2025-04-02 03:19] VITALS: BMI 33.9
[2025-04-02 03:44] LABS: Hematocrit 34.7 % (37.0-47.0); Hemoglobin 11.4 g/dL (12.0-16.0); Mean Corp Hgb Conc. 32.9 g/dL (33.0-37.0); Mean Corpuscular Volume 91.6 fL (81.0-99.0); Platelet Count 238 10^3/uL (130-400); Red Cell Dist. Width 13.8 % (11.5-14.5)
[2025-04-02 04:05] LABS: ALT (SGPT) 271 U/L (0-35); AST (SGOT) 135 U/L (14-36); Albumin 3.6 g/dl (3.5-5.0); Alkaline Phosphatase 429 U/L (38-126); Blood Urea Nitrogen 14 mg/dl (7-17); Calcium 8.9 mg/dl (8.4-10.2); Carbon Dioxide 24 mmol/L (22-30); Chloride 106 mmol/L (98-107); Estimated Creatinine Clearance 98 ml/min; Glucose 180 mg/dl (70-99); Potassium 4.4 mmol/L (3.5-5.1); Sodium 137 mmol/L (135-145); Total Protein 6.5 g/dl (6.3-8.2); eGFR > 60.00
[2025-04-02] MEDS: NSS IV (07:00)
[2025-04-02 07:46] VITALS: BP 112/56
[2025-04-02] MEDS: PROTONIX 40 MG PO (08:23)
--- NOTE | 2025-04-02 09:47 | W.PN.HOSP.TC ---
Today's Communication/Plan
-
Continue with liquid diet
Antibiotics
Assessment / Plan
Assessment / Plan
59-year-old female with jaundice she also has 5 pound weight loss since .
Ultrasound of the abdomen 03/30/2025-distal biliary obstruction with moderate extrahepatic and intrahepatic biliary dilatation. Cholelithiasis. Gallbladder sludge and diffuse gallbladder wall thickening. No ascites. Mild dilatation of the right
intrarenal collecting system.
CVS: S1-S2 normal
Chest: CTA B/L
Abdomen: Soft, laparotomy scar stable CASSIE drain with bloodstained minimal drainage
Extremities: No edema
03/31/2025-MRI/MRCP-cholelithiasis without evidence of acute cholecystitis. Large Gallstones 1 of which is in the gallbladder neck likely causing extrinsic compression on the adjacent common hepatic duct resulting in intrahepatic biliary ductal
dilatation.
# Jaundice with epigastric pain
Ultrasound as above
Symptomatic cholelithiasis-acute on chronic cholecystitis
Status post subtotal laparoscopic cholecystectomy by Dr. Lea on 04/01/2020
Concern for bile leak due to large stone being removed. Patient is status post ERCP and stent placement by Dr. Corey on 04/01/2025
No bile leak noted in the drain
Antibiotics ordered per surgeon
Patient started on liquid diet-so far tolerating
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
# Sleep apnea-CPAP - she just started it as OP
# Prediabetes
# Obesity with a BMI of 33
# DVT prophylaxis-Lovenox
# Full code
D/W RN
D/W family at bed side
Part of this note was created using voice recognition system. Occasional wrong word or��sound alike� substitutions may have inadvertently occurred due to the inherent limitations of voice recognition software. If noted kindly bring it to my
attention for correction.
Anticipated Discharge: Within 24 hours
Subjective/Interval History
-
Date of Service: April 02, 2025
Objective Data
-
Labs:
Laboratory Results
04/02/25
03:14
WBC 7.5
Hgb 11.4 L
Hct 34.7 L
Plt Count 238
Sodium 137
Potassium 4.4
Chloride 106
Carbon Dioxide 24
BUN 14
Creatinine 0.7
Glucose 180 H
Calcium 8.9
Total Bilirubin 1.4 H D
AST 135 H
ALT 271 H
Alkaline Phosphatase 429 H
Vital Signs:
Vital Signs
Temp Pulse Resp BP Pulse Ox
98.5 F 64 16 112/56 95
04/02/25 07:46 04/02/25 07:46 04/02/25 07:46 04/02/25 07:46 04/02/25 07:46
I&O
04/01/25 04/02/25 04/03/25
06:59 06:59 06:59
Intake Total 1680 / 1680 2069 / 2069
Output Total 75055 / 72421 1890 / 1890 470 / 470
Balance -55578 / -05134 180 / 180 -470 / -470
--- NOTE | 2025-04-02 10:13 | W.PN.GS2 ---
Today's Communication / Plan
-
-- Clears possible LFD this afternoon versus tomorrow
-- Pain control: Tylenol, Oxycodone
-- Abx: none further indicated or needed
-- Maintain CASSIE
-- Tend labs
Assessment / Plan
-
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
US Abdomen (03/30): cholelithiasis, gallbladder sludge, diffuse gallbladder wall thickening, sonographic Becerra sign negative, biliary dilation with CBD measuring 7.3 mm
MRI Abdomen (03/31): Cholelithiasis without evidence of acute cholecystitis, several large stones measuring up to 3 cm causing extrinsic compression on the CBD, no choledocholithiasis
POD#1 s/p laparoscopic cholecystectomy and repair of CBD injury
PPD#1 s/p ERCP with sphincterotomy and stent placement
AVSS
Labs notable for normal WBC, drift in Hb (dilutional and acute blood loss anemia), normal lytes, normal renal function, down trending bilirubin and LFTs
Recovering well overall. Tenuous situation with chronic Mirizzi syndrome and adhesion to the proximal CBD at the level of the hilum, removal of which resulted in a tear in the CBD which was primary suture repair. ERCP demonstrated no evidence of a
leak; sphincterotomy and stent placed prophylactically. Will need to maintain her CASSIE drain for 10 to 14 days postoperatively. Continue to trend labs. Tentative plan for DC in 24 to 48 hours pending clinical course.
-- Clears possible LFD this afternoon versus tomorrow
-- Pain control: Tylenol, Oxycodone
-- Abx: none further indicated or needed
-- Maintain CASSIE
-- Tend labs
Subjective Data
-
Date of Service: April 02, 2025
No major complaints. Some abdominal soreness, but well-controlled. No nausea or vomiting. No fevers. No flatus or BM.
Objective Data
-
Intake and Output
04/01/25 04/02/25 04/03/25
06:59 06:59 06:59
Intake Total 1680 / 1680 2070 / 2070
Output Total 43479 / 89371 1890 / 1890 470 / 470
Balance -15679 / -51057 180 / 180 -470 / -470
Intake:
Oral fluids 720 / 720 480 / 480
IV fluids (Total) 1540 / 1540
NS 1440 / 1440
normosol 100 / 100
IV piggybacks 960 / 960 50 / 50
Output:
Drain Output (Total) 40 20
Right Lower Abdomen Giuliano- 40 40
Hernandez
Urine, Voided 60973 / 41310 1850 / 1850 450 / 450
Vital Signs
Temp Pulse Resp BP Pulse Ox
98.5 F 64 16 112/56 95
04/02/25 07:46 04/02/25 07:46 04/02/25 07:46 04/02/25 07:46 04/02/25 07:46
Lab Results
04/02/25 03:14
04/02/25 03:14
Calcium 8.9 mg/dl (8.4-10.2) 04/02/25 03:14
Phosphorus 4.7 mg/dl (2.5-4.5) H 03/31/25 06:19
Magnesium 2.1 mg/dl (1.6-2.3) 03/31/25 06:19
Total Bilirubin 1.4 mg/dl (0.2-1.3) H D 04/02/25 03:14
Direct Bilirubin 1.0 mg/dl (0.0-0.4) H 03/31/25 06:19
AST 135 U/L (14-36) H 04/02/25 03:14
ALT 271 U/L (0-35) H 04/02/25 03:14
Alkaline Phosphatase 429 U/L (38-126) H 04/02/25 03:14
Total Protein 6.5 g/dl (6.3-8.2) 04/02/25 03:14
Albumin 3.6 g/dl (3.5-5.0) 04/02/25 03:14
Physical Exam
-
Gen: NAD
Abd: soft, mild tenderness, ND, non-peritoneal, incisions c/d/i - no erythema, ecchymosis or drainage, CASSIE serosang, non-bilious
Patient has a sofia catheter: No
Patient has a central line: No
--- NOTE | 2025-04-02 13:52 | CM ---
Chart reviewed. Patient is independent of ADLS, lives with her in a split level, 0 ERIKA, 0 DME. Patient with a CASSIE and has concerns caring for the drain. Referral placed to [facility]. Plan is for the patient to return home. CM to follow
[2025-04-02 15:07] VITALS: BP 116/53
[2025-04-02] MEDS: TYLENOL 650 MG PO (16:34)
[2025-04-02] MEDS: LOVENOX 40 MG SC (17:38)
[2025-04-02 18:40] VITALS: BP 133/66
[2025-04-02] MEDS: MYLICON 80 MG PO (20:26)
[2025-04-02 23:00] VITALS: BP 117/57
[2025-04-02 23:01] VITALS: BP 117/57
--- NOTE | 2025-04-03 02:59 | PTCARENOTE ---
Pt c/o 'gas pain' in her b/l shoulders. Deangelo GEOTECHNICAL LABORATORY TECHNICIAN made aware, orders obtained for 80mg Mylicon--administered at 20:26. Pt reports good relief. Ambulating self in room. BP stable. CASSIE Draining serosanguineous fluid. Call maria in reach, spouse at
bedside.
[2025-04-03 05:47] VITALS: BMI 33.6
[2025-04-03 06:27] LABS: Blood Urea Nitrogen 12 mg/dl (7-17); Calcium 9.0 mg/dl (8.4-10.2); Carbon Dioxide 30 mmol/L (22-30); Chloride 107 mmol/L (98-107); Estimated Creatinine Clearance 98 ml/min; Glucose 117 mg/dl (70-99); Potassium 4.2 mmol/L (3.5-5.1); Sodium 141 mmol/L (135-145); eGFR > 60.00
--- NOTE | 2025-04-03 06:48 | PTCARENOTE ---
CASSIE drain dressing w/ some sanguinous drainage. Dressing changed. Pt ambulating the halls w/ her spouse. Had a BM this morning.
[2025-04-03 07:08] VITALS: BP 156/74
[2025-04-03] MEDS: PROTONIX 40 MG PO (07:50)
--- NOTE | 2025-04-03 08:48 | W.PN.GS2 ---
Today's Communication / Plan
-
-- Maintain CASSIE
-- Tend labs
-- Dispo pending, today versus tomow depending on labs
Assessment / Plan
-
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
US Abdomen (03/30): cholelithiasis, gallbladder sludge, diffuse gallbladder wall thickening, sonographic Becerra sign negative, biliary dilation with CBD measuring 7.3 mm
MRI Abdomen (03/31): Cholelithiasis without evidence of acute cholecystitis, several large stones measuring up to 3 cm causing extrinsic compression on the CBD, no choledocholithiasis
POD#2 s/p laparoscopic cholecystectomy and repair of CBD injury
PPD#2 s/p ERCP with sphincterotomy and stent placement
AVSS
Labs pending
Recovering well overall. Tenuous situation with chronic Mirizzi syndrome and adhesion to the proximal CBD at the level of the hilum, removal of which resulted in a tear in the CBD which was primary suture repair. ERCP demonstrated no evidence of a
leak; sphincterotomy and stent placed prophylactically. Will need to maintain her CASSIE drain for 10 to 14 days postoperatively. Repeat labs pending.
-- LFD
-- Pain control: Tylenol, Oxycodone
-- Abx: none further indicated or needed
-- Maintain CASSIE
-- Tend labs
-- Dispo pending, today versus tomow depending on labs
Subjective Data
-
Date of Service: April 03, 2025
With soreness at drain site particularly with manipulation or positioning. No nausea or vomiting. No increased abdominal bloating or worsening pain. Passing flatus and a BM. Afebrile.
Objective Data
-
Intake and Output
04/02/25 04/03/25 04/04/25
06:59 06:59 06:59
Intake Total 2069 240 / 240
Output Total 1889 / 1889
Balance 180 / 180 -1675 / -1675
Intake:
Oral fluids 480 / 480 240 / 240
IV fluids (Total) 1540 / 1540
NS 1440 / 1440
normosol 100 / 100
IV piggybacks 50 / 50
Output:
Drain Output (Total) 40 40 115 / 115
Right Lower Abdomen Giuliano- 115 / 115
Hernandez
Urine, Voided 1850 / 1850 1800 / 1800
Vital Signs
Temp Pulse Resp BP Pulse Ox
98.5 F 73 20 156/74 97
04/03/25 07:08 04/03/25 07:08 04/03/25 07:08 04/03/25 07:08 04/03/25 07:49
Lab Results
04/03/25 05:41
Calcium 9.0 mg/dl (8.4-10.2) 04/03/25 05:41
Phosphorus 4.7 mg/dl (2.5-4.5) H 03/31/25 06:19
Magnesium 2.1 mg/dl (1.6-2.3) 03/31/25 06:19
Total Bilirubin 1.4 mg/dl (0.2-1.3) H D 04/02/25 03:14
Direct Bilirubin 1.0 mg/dl (0.0-0.4) H 03/31/25 06:19
AST 135 U/L (14-36) H 04/02/25 03:14
ALT 271 U/L (0-35) H 04/02/25 03:14
Alkaline Phosphatase 429 U/L (38-126) H 04/02/25 03:14
Total Protein 6.5 g/dl (6.3-8.2) 04/02/25 03:14
Albumin 3.6 g/dl (3.5-5.0) 04/02/25 03:14
Physical Exam
-
Gen: NAD
Abd: soft, mild tenderness, ND, non-peritoneal, incisions c/d/i - no erythema, ecchymosis or drainage, CASSIE thicker serosang, non-bilious
Patient has a sofia catheter: No
Patient has a central line: No
--- NOTE | 2025-04-03 09:03 | PTCARENOTE ---
Patient received at change of shift out of bed ambulating in the hallway. Reports + flatus, reports having a BM this morning, normoactive bowel sounds in all four abd quadrants. Denies N/V. SaO2 on RA 97%. Patient alerted staff that her dressing
over her RLQ CASSIE drain site was saturated, dressing changed, Dr. Lea aware. CASSIE drain with sanguinous output. Lap malia sites x4 with surgical glue intact. Discussed drain site care with patient and spouse. Plan of care discussed. Call maria within
reach. Care ongoing.
--- NOTE | 2025-04-03 09:14 | W.PN.HOSP.TC ---
Today's Communication/Plan
-
Await labs
Discharge plans per surgeon
Assessment / Plan
Assessment / Plan
59-year-old female with jaundice she also has 5 pound weight loss since .
Ultrasound of the abdomen 03/30/2025-distal biliary obstruction with moderate extrahepatic and intrahepatic biliary dilatation. Cholelithiasis. Gallbladder sludge and diffuse gallbladder wall thickening. No ascites. Mild dilatation of the right
intrarenal collecting system.
CVS: S1-S2 normal
Chest: CTA B/L
Abdomen: Soft, laparotomy wound, stable CASSIE drain with bloodstained drainage
Extremities: No edema
03/31/2025-MRI/MRCP-cholelithiasis without evidence of acute cholecystitis. Large Gallstones 1 of which is in the gallbladder neck likely causing extrinsic compression on the adjacent common hepatic duct resulting in intrahepatic biliary ductal
dilatation.
# Jaundice with epigastric pain
Ultrasound as above
Symptomatic cholelithiasis-acute on chronic cholecystitis
Status post subtotal laparoscopic cholecystectomy by Dr. Lea on 04/01/2020
Concern for bile leak due to large stone being removed. Patient is status post ERCP and stent placement by Dr. Corey on 04/01/2025
No bile leak noted in the drain
Antibiotics ordered per surgeon
Patient started on low fat diet-so far tolerating
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
# Sleep apnea-CPAP - she just started it as OP
# Prediabetes
# Obesity with a BMI of 33
# DVT prophylaxis-Lovenox
# Full code
D/W RN
D/W family at bed side
Part of this note was created using voice recognition system. Occasional wrong word or��sound alike� substitutions may have inadvertently occurred due to the inherent limitations of voice recognition software. If noted kindly bring it to my
attention for correction.
Anticipated Discharge: Within 24 hours
Subjective/Interval History
-
Date of Service: April 03, 2025
Objective Data
-
Labs:
Laboratory Results
04/03/25 04/03/25
05:41 08:55
WBC Pending
Hgb Pending
Hct Pending
Plt Count Pending
Sodium 141
Potassium 4.2
Chloride 107
Carbon Dioxide 30
BUN 12
Creatinine 0.7
Glucose 117 H
Calcium 9.0
Total Bilirubin Pending
AST Pending
ALT Pending
Alkaline Phosphatase Pending
Vital Signs:
Vital Signs
Temp Pulse Resp BP Pulse Ox
98.5 F 73 20 156/74 97
04/03/25 07:08 04/03/25 07:08 04/03/25 07:08 04/03/25 07:08 04/03/25 07:49
I&O
04/02/25 04/03/25 04/04/25
06:59 06:59 06:59
Intake Total 2069 240 / 240
Output Total 1889 / 1889 1914 / 1914
Balance 180 / 180 -1675 / -1675
[2025-04-03 09:34] LABS: Hematocrit 37.4 % (37.0-47.0); Hemoglobin 12.0 g/dL (12.0-16.0); Mean Corp Hgb Conc. 32.1 g/dL (33.0-37.0); Mean Corpuscular Volume 93.0 fL (81.0-99.0); Platelet Count 247 10^3/uL (130-400); Red Cell Dist. Width 13.3 % (11.5-14.5)
[2025-04-03 09:40] LABS: ALT (SGPT) 223 U/L (0-35); AST (SGOT) 84 U/L (14-36); Albumin 4.2 g/dl (3.5-5.0); Alkaline Phosphatase 376 U/L (38-126); Total Protein 7.5 g/dl (6.3-8.2)
--- NOTE | 2025-04-03 10:24 | CM ---
Chart reviewed. Patient is independent of ADLS, lives with her in a split level, 0 ERIKA, 0 DME. Patient going home with a CASSIE drain. Referral sent to [facility]. Plan is for the patient to return home with [facility]. CM to follow
[2025-04-03 11:20] VITALS: BP 127/68
[2025-04-03 14:43] VITALS: BP 128/52
--- NOTE | 2025-04-03 14:49 | W.DS.TRANS ---
Addendum entered and electronically signed by Patrice Resendez MD 04/03/25 15:25:
Dictation- [id number]
Original Note:
DC Summary - Sole Blacker
-
Discharge Instructions:
Discharge Diagnosis/Procedures Laparoscopic cholecystectomy and CBD repair -
ERCP with stent 04/01/2025
DDD lumbar spine with L3/L4 disc protrusio-
neuropathy
Sleep apnea
Diet Low Fat
Activity No strenuous activity
Additional Activity Do not lift over 20lbs for the next 2-3 weeks
Driving Restrictions No driving if too sore or taking narcotics
Bathing Restrictions OK to Shower
Wound Care Allow glue to flake off incisions over the next
2 weeks. Avoid soaking in tubs or pools for the
next 1 to 2 weeks. Okay to wash incisions
gently with soap and water, do not scrub or pick
off the glue.
Instructions:
Stand-Alone Forms:
Changes to Home Medications: Yes
Discharge Medications:
DC Medications w/original date entered in [employer]
oxycodone 5 mg tablet 5 mg PO Q4HPRN PRN breakthrough/severe pain #10 tabs 04/03/25
sennosides 8.6 mg capsule (senna) 8.6 mg PO HS whikle taking Oxycodone #30 caps 04/03/25
Home Medication Changes
above new
Pending Results: Yes
Additional Pending Results:
Path
--- NOTE | 2025-04-03 16:24 | PTCARENOTE ---
Reviewed discharge instructions with patient who verbalized understanding. Discussed wound care and drain management with patient and spouse. PIV INT removed. Patient left with belongings and discharge instructions. Spouse driving her home.
== END 2025-04-03 16:48 | disposition home health service (06) | DRG 409 ==
LOC: IVU 00:42
PROVIDERS: Emergency Medicine; Nurse Practitioner Adult Health; Surgery; ADMITTING PHYSICIAN Hospitalist; ATTENDING PHYSICIAN Hospitalist; CONSULT PHYSICIAN Surgery; EMERGENCY PHYSICIAN Student in an Organized Health Care Education/Training Program; FAMILY PHYSICIAN Nurse Practitioner; OTHER PHYSICIAN Internal Medicine Gastroenterology
PROC: 0FQ94ZZ Repair Common Bile Duct, Percutaneous Endoscopic Approach (ICD-10-PCS; 2025-04-01)
PROC: 0F7 Hepatobiliary System and Pancreas, Dilation (ICD-10-PCS; 2025-04-01)
PROC: 0F7 Hepatobiliary System and Pancreas, Dilation (ICD-10-PCS; 2025-04-01)
PROC: BF502Z0 Other Imaging of Bile Ducts using Fluorescing Agent, Intraoperative (ICD-10-PCS; 2025-04-01)
PROC: 0FT44ZZ Resection of Gallbladder, Percutaneous Endoscopic Approach (ICD-10-PCS; 2025-04-01)
DX: K80.13 Calculus of gallbladder with acute and chronic cholecystitis with obstruction (principal); S36.13XA Injury of bile duct, initial encounter; K66.0 Peritoneal adhesions (postprocedural) (postinfection); Y83.6 Removal of other organ (partial) (total) as the cause of abnormal reaction of the patient, or of later complication, without mention of misadventure at the time of the procedure; Z87.891 Personal history of nicotine dependence; M51.16 Intervertebral disc disorders with radiculopathy, lumbar region; G47.30 Sleep apnea, unspecified; E66.9 Obesity, unspecified; Z68.33 Body mass index [BMI] 33.0-33.9, adult; Z86.0100 Personal history of colon polyps, unspecified
CPT/HCPCS: 74183; 74330; 76000; 76700; 80048; 80053; 80076; 81003; 81015; 82248; 83690; 83735; 84100; 84443; 85025; 85027; 86705; 86706; 86709; 86803; 87340; 88304; 99285; A4300; A9575; C1769; C2617